=== PATIENT | female | born 1950 | race Caucasian/White ===

== ENCOUNTER → 2016-10-10 | Day surgery (SDC) | payer MEDICARE, OTHER ==
[~2016-10-10] MED LIST: ACETAMINOPHEN 1000 MG/100 ML VIAL IV ONE; LACTATED RINGER'S 1000 ML INJ 1,000 ML ONE; LIDOCAINE 1.5%/EPINEPHrine 1:200,000 PF SOLN 30 ML AMP ONE; ONDANSETRON HCL 4 MG/2 ML VIAL IV PUSH ONE; PROPOFOL 500 MG/50 ML BTL IV ONE; ceFAZolin 2 GM PREMIX 50 ML ONE
--- NOTE | 2016-10-10 15:23 | TN ---
cc: FRED CACERES M.D. DATE OF SURGERY: 10/10/2016 PREOPERATIVE DIAGNOSES Microcalcifications of the right breast. POSTOPERATIVE DIAGNOSES Microcalcifications of the right breast. PROCEDURE Right breast needle-localized lumpectomy. SURGEON Dr. Fred Caceres. ANESTHESIA General. INDICATIONS A very pleasant 66-year-old woman who recently relocated here from [facility], who was evaluated there with mammography which demonstrated microcalcifications of the right breast. Stereotactic biopsy was recommended. Attempts to biopsy the tissue stereotactically were unsuccessful due to the proximity of the microcalcifications to the overlying skin. Recommendation was made for needle-localized lumpectomy. INTRAOPERATIVE FINDINGS Successful removal of the area of concern as seen on specimen mammography. SPECIMENS TO PATHOLOGY A short stitch superior anterior, long stitch lateral posterior. ESTIMATED BLOOD LOSS Less than 5 mL. DESCRIPTION OF PROCEDURE IN DETAIL The patient was identified as Judi Llanos, taken to the operating room and placed in the supine position. Sequential compression devices were placed on bilateral lower extremities. The patient had undergone right breast needle localization in the imaging center. Following induction of adequate general anesthesia with a laryngeal mask, the right breast was prepped and draped in usual sterile fashion with Betadine. A time-out procedure was performed. Following completion of time-out procedure to everyone's satisfaction within the room, proposed periareolar incision superior lateral right breast was made with a marking pen, infiltrated with local anesthetic. Incision was carried out with scalpel and hemostasis controlled with electrocautery. Dissection continued posteriorly through the skin and subcutaneous tissue and superficial breast tissue until localization needle was identified within the wound. It was divided at the level of skin, brought into the wound and a generous portion of tissue around the localization needle tip was excised from surrounding breast tissue using electrocautery. The tissue was marked and sent for imaging with the above-mentioned findings from Dr. Boykin. The wound was irrigated copiously with saline. Small bleeding points were controlled with electrocautery. Once the wound was assured to be dry it was closed in layers using 3-0 Vicryl and 4-0 Monocryl. Dressings were applied, Mastisol, half-inch brown Steri-Strips, gauze and Tegaderm. The patient tolerated the procedure without apparent complication. Sponge, needle and instrument counts were correct at the end of the case. MD HOA Kaur/LAURO /2:12 PM /3:19 PM
== END | disposition home or self-care (01) ==
LOC: ESDC 09:47
PROVIDERS: ATTEND Surgery Trauma Surgery
DX: R92.0 Mammographic microcalcification found on diagnostic imaging of breast (principal)
CPT/HCPCS: 00400; 19125; 88305; J0131; J0690; J2405; J3010; J7120; 88307